=== PATIENT | male | born 1965 | race Native Hawaiian/Other Pacific Islander ===

== ENCOUNTER 2017-02-13 14:53 | Inpatient (IN) | payer BC, OTHER ==
[~2017-02-13] VITALS: Ht 154.9 cm; Wt 109.3 kg
[~2017-02-13 14:53] MED LIST: AMLO2.5T PO; BUPROPN HCL300 MG PO; DIAZEPAM10 MG PO; GABA300C2 PO; TIZA4TAB5 PO; UNITH DIRECT88 MCG PO; VITAMIN D50000 UNT PO
[2017-02-13 15:09] VITALS: BP 169/87; TEMP 99.1
[2017-02-13 16:05] LABS: PLATELET COUNT 133 K/uL (142-355)
[2017-02-13 16:09] VITALS: BP 155/72
[2017-02-13 16:09] LABS: POTASSIUM 3.8 mmol/L (3.6-5.2); SODIUM 136 mmol/L (136-145)
[2017-02-13 17:00] VITALS: BP 162/82
[2017-02-13 18:00] VITALS: BP 160/80
[2017-02-13 18:34] VITALS: BP 174/82; TEMP 99; Ht 154.9 cm; Wt 109.3 kg
[2017-02-13] MEDS ORDERED: OLANZAPINE5 M1 PO (18:45)
[2017-02-13] MEDS ORDERED: LIPITOR10 MG PO (18:46)
[2017-02-13] MEDS ORDERED: HYDR25TA60 PO (18:47)
[2017-02-13] MEDS ORDERED: PROTONIX20 MG PO (18:48)
--- NOTE | 2017-02-13 18:48 | NUR ---
182 REC'D PT VIA STRECTHER FROM ER. AT . PT HAS O2 INTACT AT 3L/NC. RESP NOTIFIED TO GIVE BREATHING TX 1829 RESP AT GIVING BREATHING TX
--- NOTE | 2017-02-13 19:40 | NUR ---
ASSESSMENT COMPLETED AT THIS TIME. PATIENT NOTED WITH GREEN DRAINAGE WHEN APPLYING PRESSURE TO THE LEFT INNER CORNER OF THE EYE STATES THIS HAS OCCURED BEFORE. 2ND IV STARTED IV ATTEMPT X1 20G TO THE RIGHT HAND.
[2017-02-13 19:51] VITALS: BP 174/91; TEMP 99.4
[2017-02-14] VITALS (18 sets, daily range): BP systolic 103–178; BP diastolic 70–95; TEMP 98.4–98.6
--- NOTE | 2017-02-14 07:30 | NUR ---
RECEIVED PT FROM ROOM [address] MCPHERSON'S ORDER. PLACED PT ON ICU MONITORS. SR NOTED. V/S STABLE. O2 @ 3L/NC. ORIENTED PT AND TO ICU SURROUNDINGS.
--- NOTE | 2017-02-14 08:52 | NUR ---
RT HERE. PT PLACED ON BIPAP. SETTINGS 01/05, 40%.
[2017-02-14 09:06] LABS: PLATELET COUNT 123 K/uL (142-355)
[2017-02-14 09:15] LABS: POTASSIUM 3.3 mmol/L (3.6-5.2); SODIUM 138 mmol/L (136-145)
--- NOTE | 2017-02-14 09:28 | NUR ---
PT RESTING QUIETLY WITH EYES CLOSED. V/S STABLE. WILL CONTINUE TO MONITOR.
--- NOTE | 2017-02-14 12:15 | NUR ---
PT AWAKE AND TAKEN OFF BIPAP AND PLACED ON O2 @ 3L/NC. SAT PT UP FOR LUNCH. WILL CONTINUE TO MONITOR.
--- NOTE | 2017-02-14 12:22 | NUR ---
0800 DR MCPHERSON HERE AT THIS TIME. MEW ORDERS GIVEN TO OBTAIN VS STAT PER . 98.9 100 21 179/86 94% WITH O2 INTACT. VS REPORTED TO DR MCPHERSON. 0810 NEW ORDERES REC'D TO TRANSFER PT TO ICU. AT BS AND AWARE OF TRANSFER. EXPLAINED TO PT. BOTH VERBALZIED UNDERSTANDING. PT TRANSFERRED TO ICU BED 1 VIA WC PER. REPORT GIVEN TO ESTELLE IN ICU.
--- NOTE | 2017-02-14 13:07 | NUR ---
PT UP AT BEDSIDE USING URINAL. PT COUGHING, LOOSE RATTLING COUGH. SPUTUM COLLECTED THICK WHITE IN COLOR.
--- NOTE | 2017-02-14 13:15 | NUR ---
RT HERE FOR ABG.
--- NOTE | 2017-02-14 13:31 | NUR ---
PT PLACED BACK ON BIPAP PER DR. MCPHERSON'S ORDER.
--- NOTE | 2017-02-14 14:40 | NUR ---
PT RESTING QUIETLY WITH EYES CLOSED. VS STABLE. WILL CONTINUE TO MONITOR.
--- NOTE | 2017-02-14 15:06 | NUR ---
PT TOOK BIPAP OFF WANTED A BREAK FROM IT. PLACED ON O2 AT 3LNC.
--- NOTE | 2017-02-14 15:08 | NUR ---
PT TOOK BIPAP OFF. PLACED O2 @ 3L/NC. WILL REAPPLY BIPAP AFTER BREAK.
--- NOTE | 2017-02-14 15:14 | NUR ---
ELEVATED T WAVES NOTED ON THE MONITOR. RT AT BEDSIDE FOR EKG. PT DENIES ANY CP. DR. MCPHERSON AWARE.
--- NOTE | 2017-02-14 15:47 | NUR ---
PT'S CALLED FOR AN UPDATE ON PT.
--- NOTE | 2017-02-14 16:40 | NUR ---
PLACED PT BACK ON BIPAP.
--- NOTE | 2017-02-14 16:43 | NUR ---
PT PLACED BACK ON BIPAP AT HIS REQUEST, TOLERATEATING WELL.
--- NOTE | 2017-02-14 18:26 | NUR ---
PT RESTING QUIETLY WITH EYES CLOSED.
--- NOTE | 2017-02-14 19:24 | NUR ---
Received pt resting in bed quietly at this time. No distress noted. VSS per monitor. Pt alert and oriented. BIPAP in place at this time. NS infusing at 125cc/hr via 20g to RH. 18g to RAC SL. No s/s of infiltration at this time. EW noted throughout lung sharpe. Pt gets SOB with excertion. Assessment completed. Denies pain at this time. SR noted on monitor. Resp even and non labored. HOB elevated. Bed in lowest position. Call light within reach. Will continue to monitor.
--- NOTE | 2017-02-14 20:02 | NUR ---
Pt at bedside with food for pt. Pt tolerating it well at this time. Will continue to monitor.
--- NOTE | 2017-02-14 20:33 | NUR ---
Pt placed back on BIPAP at this time.
--- NOTE | 2017-02-14 21:51 | NUR ---
Pt resting in bed with eyes closed. No distress noted at this time. Will continue to monitor.
--- NOTE | 2017-02-14 23:25 | NUR ---
Pt wanted break from BIPAP. Placed on NC 3L/min. O2 sat of 95% at this time. Will continue to monitor.
--- NOTE | 2017-02-14 23:39 | NUR ---
Placed pt back on BIPAP at this time. Requested some ativan for anxiety. Medication given. Will continue to monitor.
[2017-02-15] VITALS (24 sets, daily range): BP systolic 115–175; BP diastolic 72–107; TEMP 97.9–98.3
--- NOTE | 2017-02-15 01:38 | NUR ---
Placed on 3L NC at this time.
--- NOTE | 2017-02-15 02:30 | NUR ---
Place BIPAP back on pt at this time.
--- NOTE | 2017-02-15 04:04 | NUR ---
No distress noted at this time. BIPAP in place. VSS per monitor. 100% O2 sat. Will continue to monitor.
--- NOTE | 2017-02-15 05:35 | NUR ---
Amy labs drawn at this time.
[2017-02-15 05:53] LABS: POTASSIUM 4.3 mmol/L (3.6-5.2); SODIUM 143 mmol/L (136-145)
[2017-02-15 06:24] LABS: PLATELET COUNT 140 K/uL (142-355)
--- NOTE | 2017-02-15 07:00 | NUR ---
PT AWAKE SITTING ON SIDE OF BED. BIPAP TAKEN OFF AND O2 @ 3L/NC APPLIED.
--- NOTE | 2017-02-15 07:16 | NUR ---
AM ASSESSMENT DONE.
--- NOTE | 2017-02-15 08:34 | NUR ---
PT ATE ALL OF BREAKFAST. PT'S FACE REDDISH PURPLISH, O2 SAT 98%, HR 110'S, RR 22. PT PLACED BACK ON BIPAP. WILL CONTINUE TO MONITOR.
--- NOTE | 2017-02-15 08:42 | NUR ---
IV TO R AC D/C'D WITH TIP INTACT PRESSURE DRESSING APPLIED PER PT'S REQUEST.
--- NOTE | 2017-02-15 09:14 | NUR ---
PT RESTING WITH EYES CLOSED ON BIPAP. PT IS HAVING SHORT PERIODS OF APNEA. WILL CONTINUE TO MONITOR.
--- NOTE | 2017-02-15 09:41 | NUR ---
SERGEY MORALES RN IN TO SEE PT.
--- NOTE | 2017-02-15 11:32 | NUR ---
PT TAKEN OFF BIPAP AND PLACED ON O2 @ 3L/NC. AT BEDSIDE.
--- NOTE | 2017-02-15 11:36 | NUR ---
PT HAS SOME MILD CONFUSION.
--- NOTE | 2017-02-15 12:56 | NUR ---
FSBS 331. AM'S BS 344. PT IS ON SOLUMEDROL. DR. MCPHERSON NOTIFIED.
--- NOTE | 2017-02-15 13:03 | NUR ---
RECEIVED ORDER FROM DR. MCPHERSON FOR SSC. PLACED PT BACK ON BIPAP. AT BEDSIDE.
--- NOTE | 2017-02-15 13:32 | NUR ---
PT OFF OF BIPAP AND ON O2 @ 3L/NC. PT FIDGETING AND CAN'T BE STILL.
--- NOTE | 2017-02-15 13:45 | NUR ---
DR. MCPHERSON HERE TO SEE PT.
--- NOTE | 2017-02-15 13:59 | NUR ---
PT PLACED BACK ON BIPAP. WILL CONTINUE TO MONITOR.
--- NOTE | 2017-02-15 14:31 | NUR ---
PT PLACED ON BIPAP BY NURSE AT 1359.
--- NOTE | 2017-02-15 14:50 | NUR ---
PT RESTING QUIETLY WITH EYES CLOSED.
--- NOTE | 2017-02-15 16:00 | NUR ---
PT TAKEN OFF BIPAP AND PLACED O2 @ 3L/NC.
--- NOTE | 2017-02-15 16:47 | NUR ---
PT BRUSHED HIS TEETH. GAVE PT A BATH AND CHANGED BED LINENS. PT ARBEN WELL.
--- NOTE | 2017-02-15 18:01 | NUR ---
PT WATCHING TV. NAD NOTED AT THIS TIME.
--- NOTE | 2017-02-15 18:21 | NUR ---
PLACED PT ON BIPAP.
--- NOTE | 2017-02-15 18:35 | NUR ---
pt off bipap. on o2 @ 3l/nc.
--- NOTE | 2017-02-15 18:50 | NUR ---
PT TAKEN OFF BIPAP AT 1630 BY NURSE.
--- NOTE | 2017-02-15 19:12 | NUR ---
Pt resting in bed with family at bedside. No distress noted at this time. Assessment completed. Pt alert and oriented. VSS per monitor. Pt on 3L NC at this time. Resp even and non labored. HOB elevated. NS infusing at 125ml/hr to RH. No s/s of infiltration noted. Bed in lowest position. Call light within reach. Will continue to monitor.
--- NOTE | 2017-02-15 20:37 | NUR ---
Pt placed on BIPAP and resting in bed
--- NOTE | 2017-02-15 22:06 | NUR ---
No distress noted at this time. Pt resting in bed with eyes closed. VSS per monitor. Will continue to monitor.
[2017-02-16] VITALS (24 sets, daily range): BP systolic 90–163; BP diastolic 60–97; TEMP 97.7–98.7
--- NOTE | 2017-02-16 01:39 | NUR ---
0100 PT ASKED TO TAKE OFF BIPAP AND IS ON O2 AT 3L/NC. PT TOLERATING WELL AND MAINTAINING O2 SAT OF 95 TO 97%.
--- NOTE | 2017-02-16 01:40 | NUR ---
AT 01:00 PT REQUESTED TO BE REMOVED FROM BIPAP THERAPY AND BE PLACED ON N/C @ 3 LPM. SPO2 96%. NURSE AWARE OF CHANGE.
--- NOTE | 2017-02-16 02:05 | NUR ---
PT REQUESTED SOMETHING TO HELP HIME SLEEP AND ATIVAN GIVEN. PT REQUESTED TO BE PLACED BACK ON BI-PAP AND EDSON PLACED HIM ON BI-PAP.
--- NOTE | 2017-02-16 02:18 | NUR ---
PT REQUESTED TO COME OFF BI-PAP AND GO BACK ON O2 AT 3L/NC.
--- NOTE | 2017-02-16 02:19 | NUR ---
PT REMOVED BIPAP AND NOW USING NASAL O2 AT 3 LPM. NURSE JAXON STEWART AWARE.
[2017-02-16 06:04] LABS: SODIUM 142 mmol/L (136-145)
[2017-02-16 06:11] LABS: PLATELET COUNT 168 K/uL (142-355)
--- NOTE | 2017-02-16 07:00 | NUR ---
REPORT FROM PM STAFF. PT RESTING IN [place] WATCHING TV ON BIPAP 15/7.30% O2. NO C/O PAIN.
--- NOTE | 2017-02-16 08:30 | NUR ---
PT OFF BIPAP & OM 3L/NC. PT UP TO BSC. MED GREENISH LOOSE BM.ASSISTED WITH PERICARE. PT UNSTEADY WHEN GETTING OOB. HX OF FOOT DROP. WALKER AT BS FOR USE.
--- NOTE | 2017-02-16 09:21 | NUR ---
PT PLACED BACK ON BIPAP 15/7 & 30% O2,RR RATE 20,O2 SAT 92%.
--- NOTE | 2017-02-16 10:15 | NUR ---
DR MITCHELL IN TO SEE PT. PT'S AT BS. DR MITCHELL CKED PT 7 DISCUSSED CARE WITH PT'S .
--- NOTE | 2017-02-16 12:10 | NUR ---
PT ASSISTED UP IN BED,CHANGED TO NC 3L. PT SITTING UP EATING LUNCH.
--- NOTE | 2017-02-16 13:15 | NUR ---
DISCUSSED PT'S WHEEZING, IV FLUIDS NS AT 125 ML/HR & PT'S ACCUMILATED I'S & O'S WITH SERGEY MORALES RN/ABRAHAM/DR MITCHELL. NEW ORDERS.
--- NOTE | 2017-02-16 15:45 | NUR ---
PT RESTING WITH EYES CLOSED.
--- NOTE | 2017-02-16 16:09 | NUR ---
AT BS,PT UP TO STAND AT BS,VOIDED 400ML,CL YELLOW URINE IN URINAL. INCREASED SOB WITH EFFORT,AUDIBLE WHEEZE WITH EXERTION, COUGHING AT INTERVALS. PT CONTINUES TO USE SMOKELESS TOBACCO & SPIT IN A CUP A BS. DR NESS.
--- NOTE | 2017-02-16 16:22 | NUR ---
PT PLACED BACK ON BIPAP SAME SETTING'S PER PT REQUEST.
--- NOTE | 2017-02-16 20:57 | NUR ---
PATIENT PLACE ON BI PAP.
--- NOTE | 2017-02-16 21:17 | NUR ---
PT ASKED FOR BIPAP TO BE TAKEN OFF.
[2017-02-17] VITALS (19 sets, daily range): BP systolic 114–157; BP diastolic 63–99; TEMP 97.5–98.2
--- NOTE | 2017-02-17 01:22 | NUR ---
STOOL WAS COLLECTED AND SENT TO LAB EARLIER THIS SHIFT. NO ABNORMALS ON STOOL PER LAB.
--- NOTE | 2017-02-17 01:55 | NUR ---
PT REQUESTED SOMETHING FOR REST. PT WAS GIVEN VALIUM 10 MG PO FOR RESTLESSNESS AND WAS REPOSITIONED IN BED.
--- NOTE | 2017-02-17 03:24 | NUR ---
MEDICATION EFFECTIVE. PT RESTING QUIETLY. HR 46. SINUS SOPHIA. O2 SAT IS 99 PERCENT.
[2017-02-17 05:20] LABS: POTASSIUM 4.3 mmol/L (3.6-5.2); SODIUM 135 mmol/L (136-145)
[2017-02-17 05:28] LABS: PLATELET COUNT 164 K/uL (142-355)
--- NOTE | 2017-02-17 05:30 | NUR ---
BLOOD DRAWN FOR AM LABS. LAB RESULTS BACK.
--- NOTE | 2017-02-17 07:00 | NUR ---
REPORT FROM PM STAFF. PT RESTING IN LOW FOWLERS WITH EYES CLOSED. NO C/O.
--- NOTE | 2017-02-17 09:30 | NUR ---
DR MITCHELL IN TO SEE PT.NEW ORDERS.
--- NOTE | 2017-02-17 10:15 | NUR ---
PT WITH O2 SAT 96%,PT PLACED BACK ON BIPAP PT'S REQUEST.
--- NOTE | 2017-02-17 11:00 | NUR ---
PT TOOK SELF OFF BIPAP & PUT ON O2 AT 3L/NC.O2 SATS 97%. RR RATE 20.
--- NOTE | 2017-02-17 11:50 | NUR ---
PT SITTING UP ON SIDE OF THE BED,USED URINAL 550 ML CL YELLOW URINE.
--- NOTE | 2017-02-17 12:45 | NUR ---
PT SITTING UP IN BED FEEDING SELF LUNCH. NO C/O PAIN.
--- NOTE | 2017-02-17 14:20 | NUR ---
PT TO SHOWER /WC PER HAROLDO'Jorje,RACHEL NOEL & HANNAH SHARMA. PT STABLE ON O2 AT 3L/NC.
--- NOTE | 2017-02-17 14:42 | NUR ---
PT BACK TO BED.STABLE ON O2 AT 3L/NC.
--- NOTE | 2017-02-17 16:30 | NUR ---
PT WATCHING TV,O2 SAT96%.
--- NOTE | 2017-02-17 17:43 | NUR ---
PT SLEEPING. O2 SAT 93&.
--- NOTE | 2017-02-17 18:33 | NUR ---
PT FED SELF DINNER,DENIES ACUTE PAIN. INCREASED SOB WITH EXERTION. WHEN UP TO BSC, FACE BECOMES FLUSED & PT WHEEZES. O2 SATS 97%.
[2017-02-18] VITALS (10 sets, daily range): BP systolic 88–189; BP diastolic 49–91; TEMP 97.9–98.6
--- NOTE | 2017-02-18 00:56 | NUR ---
PT USING BIPAP. PT WITHOUT COMPLAINTS. CM WITH SINUS RHYTHM. BSC IN EACH REACH. PT USES WALKER FOR ASSISTANCE WITH TRANSFER.
[2017-02-18 06:11] LABS: PLATELET COUNT 143 K/uL (142-355)
[2017-02-18 06:29] LABS: POTASSIUM 3.6 mmol/L (3.6-5.2); SODIUM 137 mmol/L (136-145)
--- NOTE | 2017-02-18 07:30 | NUR ---
AM ASSESSMNT DONE. NAD NOTED AT THIS TIME.
--- NOTE | 2017-02-18 09:44 | NUR ---
PT RESTING QUIETLY WITH EYES CLOSED. WILL CONTINUE TO MONITOR.
--- NOTE | 2017-02-18 10:50 | NUR ---
DR. MITCHELL HERE TO SEE PT.
--- NOTE | 2017-02-18 12:52 | NUR ---
RECEIVED ORDER TO TRANSFER PT TO MED SURG. PT WILL BE MOVED TO ROOM 1109.
--- NOTE | 2017-02-18 15:29 | NUR ---
PT UP TO BSC. PT HAD BM. COLLECTED AND SENT TO THE LAB.
--- NOTE | 2017-02-18 15:51 | NUR ---
TRANSFERRED PT TO ROOM 1109 VIA IN STABLE COND. ORIENTED PT TO HIS SURROUNDINGS. REPORT GIVEN TO ANGELO PIZARRO RN.
--- NOTE | 2017-02-18 16:24 | NUR ---
1600 REC'D PT FROM ICU VIA WC PER ESTELLE FROM ICU. PT AWAKE AND ALERT. PT ASSISTED BACK TO BED AND O2 PER NC PLACED ON PT AT 3 L/NC
[2017-02-19 00:28] VITALS: BP 136/74; TEMP 98.7
[2017-02-19 04:00] VITALS: BP 157/88; TEMP 98.5
[2017-02-19 05:24] LABS: PLATELET COUNT 142 K/uL (142-355)
[2017-02-19 06:03] LABS: POTASSIUM 3.1 mmol/L (3.6-5.2); SODIUM 139 mmol/L (136-145)
[2017-02-19 07:50] VITALS: BP 184/93; TEMP 98.8
[2017-02-19 12:00] VITALS: BP 128/72; TEMP 98.8
[2017-02-19 16:00] VITALS: BP 156/98; TEMP 98.9
--- NOTE | 2017-02-19 16:10 | NUR ---
02 90% ON ROOM AIR WALKING PT O2 DROPPED TO 76%. PT BACK TO ROOM AND 02 REAPPLIED AT 3L AND 02 SAT UP TO 92% DR MITCHELL NOTIFIED.
--- NOTE | 2017-02-19 16:45 | NUR ---
DC INSTRUCTIONS GIVEN TO PT AND . PT INSTRUCTED ON RX CALLED [facility] BY KENRICK AVILES. IV DC'D WITH CANNULA INTACT AND SITE CARE PROVIDED. AWAITING ANA MARIA FROM [facility]. RESP. TO SET UP HOME .
--- NOTE | 2017-02-19 17:15 | NUR ---
PT LEFT VIA WC WITH HOME O2 AT THIS TIME.
== END 2017-02-19 17:15 | disposition home or self-care (01) | DRG 177 ==
LOC: ED 14:53 → ICU 17:50 → MED/SURG 17:50 → ICU 02-14 07:20 → MED/SURG 02-18 15:55
PROVIDERS: Internal Medicine
DX: J15.5 Pneumonia due to Escherichia coli (principal); J96.02 Acute respiratory failure with hypercapnia; E87.2 Acidosis; J10.08 Influenza due to other identified influenza virus with other specified pneumonia; J02.0 Streptococcal pharyngitis; G62.89 Other specified polyneuropathies; A08.8 Other specified intestinal infections; M48.00 Spinal stenosis, site unspecified
CPT/HCPCS: 36415; 36600; 80048; 80053; 80202; 81000; 82272; 82805; 82948; 82962; 83735; 85027; 87040; 87045; 87070; 87077; 87186; 87205; 87328; 87329; 87493; 87798; 87804; 87880; 87899; 93005; 94640; 94664; 94760; 96361; 96365; 96368; 96372; 99285; J0456; J0696; J0744; J1644; J1956; J2060; J2543; J2930; J3370; J3490

== ENCOUNTER 2017-03-10 12:55 | Outpatient (CLI) | payer BC, OTHER ==
[~2017-03-10 12:55] MED LIST changes: +HYDR25TA60 PO; +LIPITOR10 MG PO; +OLANZAPINE5 M1 PO; +PROTONIX20 MG PO
== END 2017-03-10 14:00 | disposition home or self-care (01) ==
LOC: RESP 12:55
DX: R06.02 Shortness of breath (principal)
CPT/HCPCS: 94664

== ENCOUNTER 2017-04-09 15:25 | Observation (INO) | payer BC, OTHER ==
[~2017-04-09] VITALS: Ht 175.3 cm; Wt 108.9 kg
--- NOTE | 2017-04-09 15:40 | NUR ---
PT ADMITTED TO ROOM [address] MCPH[address]. PT C/O OF SOB THAT STARTED X 2 DAYS. PT STATES HE HAS A PREVIOUS DIAGNOSIS OF RESPIRATORY FAILURE AND A GROWTH IN ONE OF HIS LUNGS THAT WAS DISCOVERED IN FEBRUARY OF 2017.
[2017-04-09 17:22] LABS: PLATELET COUNT 148 K/uL (142-355)
[2017-04-09 19:05] VITALS: BP 161/98; TEMP 98.5; Ht 175.3 cm; Wt 108.9 kg
[2017-04-09 20:00] VITALS: BP 163/94; TEMP 99
[2017-04-10 00:20] VITALS: BP 107/66; TEMP 98.1
--- NOTE | 2017-04-10 01:00 | NUR ---
04/10/17 0100 RESPIRATORY PRESENT TO GIVE BREATHING TREATMENT,INCENTIVE SPIIROMETER USED WAS ABLE 1500.CC
[2017-04-10 04:00] VITALS: BP 122/77; TEMP 98.6
[2017-04-10 05:44] LABS: PLATELET COUNT 151 K/uL (142-355)
[2017-04-10 06:01] LABS: SODIUM 134 mmol/L (136-145)
[2017-04-10 08:00] VITALS: BP 139/76; TEMP 97.7
[2017-04-10 12:00] VITALS: BP 151/70; TEMP 98.4
[2017-04-10 16:00] VITALS: BP 128/78; TEMP 98.4
[2017-04-10 20:00] VITALS: BP 142/62; TEMP 98.3
[2017-04-11] VITALS: BP 118/64; TEMP 97.8
[2017-04-11 04:00] VITALS: BP 109/63; TEMP 97.6
[2017-04-11 05:08] LABS: PLATELET COUNT 144 K/uL (142-355)
[2017-04-11 05:11] LABS: POTASSIUM 3.8 mmol/L (3.6-5.2); SODIUM 134 mmol/L (136-145)
[2017-04-11 08:00] VITALS: BP 141/82; TEMP 97.7
[2017-04-11 12:00] VITALS: BP 148/76; TEMP 98.6
--- NOTE | 2017-04-11 12:50 | NUR ---
IV D/C'd.DISCHARGE INSTRUCTIONS SIGNED AND GIVEN. Pt. EXIT OUT OF FRONT ENTRANCE VIA W/C.
== END 2017-04-11 12:50 | disposition home or self-care (01) ==
LOC: MED/SURG 15:25
PROVIDERS: Internal Medicine; ADMIT Nurse Practitioner Family
DX: J44.1 Chronic obstructive pulmonary disease with (acute) exacerbation (principal); J20.9 Acute bronchitis, unspecified; J44.0 Chronic obstructive pulmonary disease with (acute) lower respiratory infection; R06.09 Other forms of dyspnea; R00.0 Tachycardia, unspecified; R05 Cough; E03.8 Other specified hypothyroidism; I10 Essential (primary) hypertension; J84.10 Pulmonary fibrosis, unspecified; D86.0 Sarcoidosis of lung
CPT/HCPCS: 36415; 36600; 80048; 80053; 82805; 83735; 85027; 86703; 86803; 87340; 94640; 94664; 94668; 94760; 96367; 96372; 96374; 96375; 99220; G0378; G0379; G0432; J1644; J1956; J2930; J3490

== ENCOUNTER 2017-05-06 08:21 | Inpatient (IN) | payer BC, OTHER ==
[~2017-05-06] VITALS: Ht 175.3 cm; Wt 114.8 kg
[2017-05-06 08:30] VITALS: BP 180/104; TEMP 98.6
[2017-05-06 09:29] LABS: POTASSIUM 3.9 mmol/L (3.6-5.2)
[2017-05-06 11:38] LABS: PLATELET COUNT 212 K/uL (142-355)
--- NOTE | 2017-05-06 16:20 | NUR ---
Pt. ADMITTED TO ROOM [address] MCPHERSON. C/O PAIN AND REDNESS DANYELLE LE'S WITH TENDERNESS. RED AREA RLL 2.5X 13/4 CM. LL LEG OUTER REGION 4CMX 5.5 CM, R LEG ABOVE KNEE 5CMX3.5CM, REDDNESS AREA C/O BURING &TENDERNESS TO TOUCH L HEEL 5.5X8CM.
--- NOTE | 2017-05-06 16:50 | NUR ---
BLOOD PRESSURE 210/130 ON ARRIVAL TO ROOM. NOTIFIED DR. MARISCAL OF BLOOD. B/P WAS ELEVATED IN ER. NEW ORDERS GIVEN.
[2017-05-06 17:06] VITALS: BP 210/130; TEMP 98.6; Ht 175.3 cm; Wt 114.8 kg
[2017-05-06 20:00] VITALS: BP 187/104; TEMP 99.4
[2017-05-07] VITALS (21 sets, daily range): BP systolic 107–187; BP diastolic 61–101; TEMP 98–98.9
--- NOTE | 2017-05-07 04:17 | NUR ---
05/07/17 AT 0112PT'S B/P RECHECKED DUE TO PT GOT CATAPRES 0.2MG PO 1 HOUR AGO. B/P IS NOW 116/77. WILL CONTINUE TO MONITOR CLOSELY.
--- NOTE | 2017-05-07 04:19 | NUR ---
05/07/2017 AT 0035PT'S B/P HIGH BUT PT JUST GOT SCHEDULED PO MEDICATION FOR B/P. WILL RECHECK IN 1 HOUR.
[2017-05-07 05:22] LABS: PLATELET COUNT 166 K/uL (142-355)
[2017-05-07] MEDS ORDERED: GABA400C2 PO (05:33)
[2017-05-07] MEDS ORDERED: PERCOCET1 TA3 PO (05:40)
[2017-05-07 05:54] LABS: POTASSIUM 3.9 mmol/L (3.6-5.2); SODIUM 137 mmol/L (136-145)
--- NOTE | 2017-05-07 10:00 | NUR ---
PT TO ICU AT THIS TIME VIA WC. ORIENTED TO ICU BED AND CONTROLS. ASSESSMENT COMPLETE. IV INTACT AND PATENT AT THIS TIME. NS INFUSING AT 150 ML/HR. O2 ON AT 2L PER NC. DENIES COMPLAINTS AT THIS TIME. BANDAGE CLEAN DRY AND INTACT TO LLQ ABDOMEN. PT STATES HE HAD HIS PAIN PUMP REPLACED LAST . PT HAS FOLLOW UP APPT WITH PAIN DOCTOR NEXT WEEK. SMALL RED SPOT NOTED TO R LOWER EXTREMETIY. OUTLINED REDNESS TO MONITOR. HEEL NOTED TO HAVE BLISTERLIE APPEARANCE WITH REDNESS NOTED. ELEVATED ON PILLOW.
--- NOTE | 2017-05-07 11:43 | NUR ---
DR MCPHERSON AT BS TALKING WITH PT
--- NOTE | 2017-05-07 13:00 | NUR ---
PT HIGH FOWLERS EATING LUNCH AT THIS TIME. NAD NOTED. O2 SAT 93-95%
--- NOTE | 2017-05-07 14:15 | NUR ---
PT RESTING WITH EYES CLOSED. AROUSES EASILY. NAD NOTED
--- NOTE | 2017-05-07 15:00 | NUR ---
VISITOR AT BS. PT SITTING UP TALKING WITH VISITOR. NAD NOTED.
--- NOTE | 2017-05-07 16:00 | NUR ---
PT STANDING AT BS USING URINAL. STEADY AT THIS TIME. 500CC CLEAR YELLOW URINE NOTED.
--- NOTE | 2017-05-07 17:00 | NUR ---
DR MCPHERSON NOTIFIED OF CRITICAL LABS. INSTRUCTED TO CALL HIM WITH NEXT LEVEL. WILL INFORM PARK MAINTAINER. NO NEW ORDERS AT THIS TIME
--- NOTE | 2017-05-07 20:15 | NUR ---
CPK DRAWN. TO LAB. [place] 329.
--- NOTE | 2017-05-07 21:11 | NUR ---
PT C/O BACK PAIN. MEDICATED WITH OXYCODONE 2 TABS PO FOR PAIN SCALE OF 8
--- NOTE | 2017-05-07 22:04 | NUR ---
NORMAL SALINE INCREASED TO 500CC/HR PAST REPORTING CRITICAL LABS TO DR. MCPHERSON. PLAN OF CARE EXPLAINED TO PT. PT IN AGREEMENT.
--- NOTE | 2017-05-07 22:09 | NUR ---
ORDERS RECEIVED TO OBTAIN CHEST X-RAY AT ANY TIME PT EXHIBITS ANY SIGNS OF FLUID OVERLOAD AND NOTIFY ER DOCTOR FOR LASIX ORDER.
[2017-05-08] VITALS (17 sets, daily range): BP systolic 111–190; BP diastolic 64–104; TEMP 97.7–98.7
--- NOTE | 2017-05-08 00:15 | NUR ---
NEW IV SITE TO LEFT INNER WRIST WITH 20 GAUGE CATHETER PER PAULA LANTIGUA RN. IV FLUIDS OF NS 1000CC'S AT 500CC/HR TO THIS SITE.
--- NOTE | 2017-05-08 00:33 | NUR ---
VOIDED 600CC'S IN URINAL. PT DENIES TIGHTNESS IN CHEST, SOB. 02 PER NASAL CANNULA SATURATION 93%.
--- NOTE | 2017-05-08 02:10 | NUR ---
PT VERY UNSTEADY WHEN STANDS TO USE URINAL. SUMMERS CATHETER INSERTED FOR FALL PREVENTION PER PT REQUEST.
--- NOTE | 2017-05-08 04:14 | NUR ---
PT AWAKENED FOR LAB DRAW. PT C/O LEG AND BACK PAIN. MEDICATED WITH OXYCODONE 2 TABS PO FOR PAIN SCALE OF 7.
[2017-05-08 05:05] LABS: PLATELET COUNT 119 K/uL (142-355)
[2017-05-08 05:31] LABS: POTASSIUM 5.1 mmol/L (3.6-5.2); SODIUM 136 mmol/L (136-145)
--- NOTE | 2017-05-08 08:15 | NUR ---
AM ASSESSMENT COMPLETE.
--- NOTE | 2017-05-08 10:11 | NUR ---
FAMILY AT BS
--- NOTE | 2017-05-08 12:20 | NUR ---
DR MCPHERSON AT BS
--- NOTE | 2017-05-08 20:00 | NUR ---
AND CHILDREN AT BEDSIDE. PT STATES HE FEELS BETTER TODAY. 02 REMAINS AT 3 LITER PER NC. SUMMERS DRAINING CLEAR URINE AT BEDSIDE. IV SITE WITHOUT TO LEFT WRIST WITHOUT REDNESS OR SWELLING. INFUSING AT 250CC/HR. ABOMINAL DRESSING TO LEFT ABDOMEN INTACT.
--- NOTE | 2017-05-08 20:51 | NUR ---
PT C/O PAIN IN BACK AND LEGS. PAIN SCALE 7. MEDICATED WITH PERCOCET 2 TABS PO ORDERED.
--- NOTE | 2017-05-08 21:30 | NUR ---
PT WATCHING T.V. AT PRESENT.
[2017-05-09] VITALS (8 sets, daily range): BP systolic 123–190; BP diastolic 71–90; TEMP 97.4–99.1
--- NOTE | 2017-05-09 02:06 | NUR ---
PT RESTING QUIETLY WITH EYES CLOSED. RESP EVEN AND UNLABORED. 02 SATURATION 94%.
--- NOTE | 2017-05-09 04:12 | NUR ---
PT AWAKE. PT C/O BACK, LEGS, ABDOMINAL PAIN. PAIN SCALE 8. MEDICATED WITH OXYCODONE 2 TABS PO
--- NOTE | 2017-05-09 05:15 | NUR ---
PT ASSISTED TO BEDSIDE COMMODE. PT UNABLE TO HAVE BOWEL MOVEMENT AT THIS TIME. PT PASSING GAS.
--- NOTE | 2017-05-09 05:34 | NUR ---
PT RETURNED TO BED WITH ASSISTANCE. WATCHING T.V. AT THIS TIME.
--- NOTE | 2017-05-09 06:15 | NUR ---
RADIOLOGY AT BEDSIDE FOR CHEST X-RAY. PT HAS NONPRODUCTIVE COUGH AT TIMES.
--- NOTE | 2017-05-09 07:30 | NUR ---
PT UP TO BSC.. LARGE BM NOTED
--- NOTE | 2017-05-09 09:20 | NUR ---
BLOOD DRAW, PT TOLERATED WELL
--- NOTE | 2017-05-09 09:31 | NUR ---
AM ASSESSMENT COMPLETE
[2017-05-09 10:10] LABS: PLATELET COUNT 132 K/uL (142-355)
[2017-05-09 10:23] LABS: POTASSIUM 3.9 mmol/L (3.6-5.2); SODIUM 135 mmol/L (136-145)
--- NOTE | 2017-05-09 14:10 | NUR ---
DR MCPHERSON HERE TO ASSESS PT., NEW ORDERS GIVEN, PT DROWSY, BUT SPEAKING TO DR MCPHERSON, ANSWERING QUESTIONS APPROIATELY. SKIN WARM AND DRY, RESP REG AND UNLABORED AT THIS TIME. PT CONTINUES TO HAVE REDDNESS TO THE FACE AND SHOULDERS. PT CHEW TOBACCO WHILE LYING IN BED. IVF INFUSION AT 125ML/HR ORDERED PER MD., SITE WAS CHANGED TO PRE EXSISTING SITE AT THE LEFT AC, IVSL WAS LEFT INTACT, FLUSHED WITH 10ML NS., NO PROBLEMS NOTED AT THIS TIME.
--- NOTE | 2017-05-09 19:07 | NUR ---
PT ALERT HAS EATEN SUPPER, NO COMPLAINTS NOTED AT THIS TIME, PT TO BE TRANSPORTED TO RM 1107, VITAL SIGNS STABLE, AND RECORDED. NO PROBLEMS NOTED AT THIS TIME.
[2017-05-10] VITALS: BP 129/73; TEMP 97.9
[2017-05-10 04:00] VITALS: BP 133/92; TEMP 97.5
[2017-05-10 05:57] LABS: SODIUM 138 mmol/L (136-145)
[2017-05-10 06:09] LABS: PLATELET COUNT 103 K/uL (142-355)
[2017-05-10 08:00] VITALS: BP 164/83; TEMP 99.1
--- NOTE | 2017-05-10 08:00 | NUR ---
RESTING QUIETLY IN BED RECIEVED AM MEDS ORDERED NO COMPLAINTS. ASSIST UP IN BED FOR BREAKFAST. ARBEN WELL.
[2017-05-10 11:45] VITALS: BP 175/92; TEMP 98.5
--- NOTE | 2017-05-10 15:50 | NUR ---
SUMMERS CATHETER CLAMPED
--- NOTE | 2017-05-10 16:15 | NUR ---
PT CALLED FEELING NEED TO VOID. SUMMERS CATHETER UNCLAMPED AND DRAINED AND RECLAMPED
[2017-05-10 16:33] VITALS: BP 179/83
--- NOTE | 2017-05-10 16:55 | NUR ---
SUMMERS CATHETER UNCLAMPED 2ND TIME INFORMED PT ONCE BLADDER DRAINED SUMMERS CATHETER WILL BE D/C'D
--- NOTE | 2017-05-10 17:15 | NUR ---
D/C INSTRUCTIONS GIVEN TO PT AND . RX ATTACHED. L FA 20G D/C'D AND R AC 18G CATH TIP INTACT.
== END 2017-05-10 17:40 | disposition home or self-care (01) | DRG 558 ==
LOC: ED 08:21 → ICU 13:20 → MED/SURG 13:20 → ICU 05-07 10:10 → MED/SURG 05-09 19:00
PROVIDERS: Internal Medicine; Specialist; ADMIT Family Medicine
DX: M62.82 Rhabdomyolysis (principal); E87.2 Acidosis; J84.10 Pulmonary fibrosis, unspecified; E11.9 Type 2 diabetes mellitus without complications; R06.89 Other abnormalities of breathing; D86.8 Sarcoidosis of other sites; I10 Essential (primary) hypertension; L52 Erythema nodosum; E03.8 Other specified hypothyroidism; G62.9 Polyneuropathy, unspecified
CPT/HCPCS: 36415; 36600; 80053; 81000; 82550; 82553; 82805; 82962; 83036; 83735; 83880; 84100; 84439; 84443; 84484; 85027; 85379; 93005; 96365; 96366; 96372; 99284; J1644; J2930; J3411; J3475; J3490; Q9963

== ENCOUNTER 2017-05-21 14:57 | Observation (INO) | payer BC, OTHER ==
[~2017-05-21] VITALS: Ht 175.3 cm; Wt 98.0 kg
[2017-05-21] VITALS (9 sets, daily range): BP systolic 90–131; BP diastolic 58–86; TEMP 97.8–99.4; Ht 175.3 cm; Wt 98.0 kg
[~2017-05-21 14:57] MED LIST changes: +GABA400C2 PO; +PERCOCET1 TA3 PO
[2017-05-21] MEDS ORDERED: LEVEMIR SC (15:14)
[2017-05-21] MEDS ORDERED: PRINIVIL10 MG OR (15:14)
[2017-05-21 15:30] LABS: PLATELET COUNT 266 K/uL (142-355)
[2017-05-21 15:48] LABS: POTASSIUM 4.4 mmol/L (3.6-5.2); SODIUM 128 mmol/L (136-145)
[2017-05-21 15:51] LABS: PARTIAL THROMBOPLASTIN TIME 24.5 SECONDS (24.5-33.6)
[2017-05-22] VITALS: BP 125/68; TEMP 98.5
[2017-05-22 04:00] VITALS: BP 138/73; TEMP 98.7
[2017-05-22 07:51] LABS: PLATELET COUNT 184 K/uL (142-355)
[2017-05-22 07:59] LABS: POTASSIUM 3.5 mmol/L (3.6-5.2)
[2017-05-22 08:00] VITALS: BP 130/62; TEMP 98.4
[2017-05-22 12:00] VITALS: BP 98/70; TEMP 99.5
[2017-05-22 16:00] VITALS: BP 102/67; TEMP 98
== END 2017-05-22 16:28 | disposition home or self-care (01) ==
LOC: ED 14:57 → MED/SURG 16:25
PROVIDERS: Internal Medicine; ADMIT Emergency Medicine
DX: R07.89 Other chest pain (principal); E11.9 Type 2 diabetes mellitus without complications; R06.09 Other forms of dyspnea; J84.10 Pulmonary fibrosis, unspecified
CPT/HCPCS: 36415; 36591; 80053; 82550; 82948; 83735; 83880; 84484; 85027; 85610; 85730; 93005; 94640; 94664; 94760; 96361; 96372; 96374; 96375; 99220; 99284; G0378; J1815; J2060

== ENCOUNTER 2018-03-04 10:43 | Observation (INO) | payer BC, OTHER ==
[~2018-03-04] VITALS: Ht 175.3 cm; Wt 101.2 kg
[~2018-03-04 10:43] MED LIST changes: +LEVEMIR SC; +PRINIVIL10 MG OR
[2018-03-04 12:24] LABS: PLATELET COUNT 140 K/uL (142-355)
[2018-03-04 12:52] LABS: POTASSIUM 4.5 mmol/L (3.6-5.2); SODIUM 135 mmol/L (136-145)
[2018-03-04 15:49] VITALS: BP 148/93; TEMP 98.7; Ht 175.3 cm; Wt 101.2 kg
[2018-03-04 20:00] VITALS: BP 146/94; TEMP 97.6
[2018-03-05] VITALS: BP 162/85; TEMP 97.7
[2018-03-05 04:00] VITALS: BP 163/74; TEMP 97.7
[2018-03-05 05:19] LABS: PLATELET COUNT 150 K/uL (142-355)
[2018-03-05 06:05] LABS: POTASSIUM 4.3 mmol/L (3.6-5.2)
[2018-03-05 08:00] VITALS: BP 150/74; TEMP 97.9
[2018-03-05 12:00] VITALS: BP 141/84; TEMP 98
[2018-03-05] MEDS ORDERED: MEDROL DOSEPAK4 MG PO (15:56)
[2018-03-05] MEDS ORDERED: CLARITIN10 MG PO (15:56)
--- NOTE | 2018-03-05 17:03 | NUR ---
IV TO PTS LEFT FA D/C'D. DISCHARGE INSTRUCTIONS GIVEN. MEDS SENT TO [facility]. PT IS TO FOLLOW UP WITH PCP IN 3-5 DAYS. PT LEFT VIA WC. FAMILY AT SIDE. HOME O2 INTACT. PT TOLERATING WELL. NAD NOTED.
== END 2018-03-05 17:03 | disposition home or self-care (01) ==
LOC: MED/SURG 10:43
PROVIDERS: ADMIT Family Medicine
DX: E87.2 Acidosis (principal); R06.02 Shortness of breath; E11.9 Type 2 diabetes mellitus without complications; I10 Essential (primary) hypertension; E03.8 Other specified hypothyroidism; J84.10 Pulmonary fibrosis, unspecified
CPT/HCPCS: 36600; 80053; 82550; 82553; 82805; 83615; 83735; 83880; 84484; 85027; 85379; 86738; 87040; 87899; 93005; 94640; 94664; 94760; 96374; 96375; 99220; G0378; G0379; J1815; J2930; Q9963

== ENCOUNTER 2018-05-10 11:37 | Inpatient (IN) | payer BC, OTHER ==
[~2018-05-10] VITALS: Ht 175.3 cm; Wt 99.5 kg
[~2018-05-10 11:37] MED LIST changes: +CLARITIN10 MG PO; +MEDROL DOSEPAK4 MG PO
[2018-05-10 11:40] VITALS: BP 157/104; TEMP 102
[2018-05-10 13:37] LABS: PLATELET COUNT 180 K/uL (142-355)
[2018-05-10 13:46] LABS: POTASSIUM 4.1 mmol/L (3.6-5.2)
[2018-05-10 16:59] VITALS: BP 169/51; TEMP 99.2; Ht 175.3 cm; Wt 99.5 kg
[2018-05-10 20:00] VITALS: BP 167/85; TEMP 98.8
[2018-05-11] VITALS: BP 128/72; TEMP 98.3
[2018-05-11 04:00] VITALS: BP 115/70; TEMP 97.6
[2018-05-11 05:36] LABS: PLATELET COUNT 184 K/uL (142-355)
[2018-05-11 06:00] LABS: POTASSIUM 4.2 mmol/L (3.6-5.2)
[2018-05-11 08:00] VITALS: BP 141/80; TEMP 98.2
[2018-05-11 12:00] VITALS: BP 126/84; TEMP 98.3
[2018-05-11 16:00] VITALS: BP 155/87; TEMP 98.2
[2018-05-11 20:00] VITALS: BP 110/59; TEMP 97.8
[2018-05-12] VITALS: BP 130/55; TEMP 97.8
[2018-05-12 04:00] VITALS: BP 109/56; TEMP 97.5
[2018-05-12 08:00] VITALS: BP 139/64; TEMP 98.2
[2018-05-12 08:23] LABS: PLATELET COUNT 197 K/uL (142-355)
[2018-05-12 08:51] LABS: POTASSIUM 4.9 mmol/L (3.6-5.2)
[2018-05-12] MEDS ORDERED: MEDROL4 MG PO (11:14)
[2018-05-12] MEDS ORDERED: PROAIR HFA IN (11:14)
[2018-05-12] MEDS ORDERED: LEVO250T2 PO (11:14)
[2018-05-12 12:00] VITALS: BP 135/74; TEMP 97.8
== END 2018-05-12 13:00 | disposition home or self-care (01) | DRG 195 ==
LOC: ED 11:37 → MED/SURG 15:30
PROVIDERS: ADMIT Family Medicine
DX: J18.8 Other pneumonia, unspecified organism (principal); I10 Essential (primary) hypertension; E11.42 Type 2 diabetes mellitus with diabetic polyneuropathy; E03.8 Other specified hypothyroidism; E78.4 Other hyperlipidemia; G89.29 Other chronic pain; F41.8 Other specified anxiety disorders
CPT/HCPCS: 36415; 36600; 80053; 81000; 82805; 82948; 85027; 87040; 87070; 87205; 87899; 93005; 94640; 94664; 94760; 96365; 96372; 96375; 99284; J0456; J0696; J1815; J2930; J3490

== ENCOUNTER 2018-06-08 09:53 | Emergency (ER) | payer BC, OTHER ==
[~2018-06-08] VITALS: Ht 175.3 cm; Wt 99.3 kg
[~2018-06-08 09:53] MED LIST changes: +LEVO250T2 PO; +MEDROL4 MG PO; +PROAIR HFA IN
[2018-06-08 10:00] VITALS: TEMP 98.4
[2018-06-08 10:59] LABS: PLATELET COUNT 148 K/uL (142-355)
[2018-06-08 11:15] LABS: POTASSIUM 4.3 mmol/L (3.6-5.2); SODIUM 142 mmol/L (136-145)
[2018-06-08 12:36] VITALS: BP 125/88
== END 2018-06-08 12:36 | disposition home or self-care (01) ==
LOC: ED 09:53
DX: D86.0 Sarcoidosis of lung (principal)
CPT/HCPCS: 36415; 80053; 81000; 84484; 85027; 93005; 96374; 99284; J2930

== ENCOUNTER 2021-02-28 09:09 | Emergency (ER) | payer OTHER ==
[~2021-02-28] VITALS: Ht 175.3 cm; Wt 86.6 kg
[2021-02-28 09:20] VITALS: TEMP 98.9
[2021-02-28] MEDS ORDERED: LYRICA150 MG PO (09:22)
[2021-02-28] MEDS ORDERED: TIZANIDINE HYDRO4 MG PO (09:23)
[2021-02-28] MEDS ORDERED: LIPITOR10 MG PO (09:25)
[2021-02-28] MEDS ORDERED: DILT-XR180 MG PO (09:27)
[2021-02-28] MEDS ORDERED: LEVOTHYROXIN100 MC1 IV (09:28)
[2021-02-28] MEDS ORDERED: PRED5TAB3 PO (09:28)
[2021-02-28] MEDS ORDERED: METFORMIN HCL500 MG PO (09:29)
[2021-02-28] MEDS ORDERED: LEVEMIR FL100 UNIT/M SC (09:30)
[2021-02-28] MEDS ORDERED: HUMALOG MIX SC (09:30)
[2021-02-28] MEDS ORDERED: PEPCID40 MG PO (09:31)
[2021-02-28] MEDS ORDERED: BUDE1AER5 INH (09:32)
[2021-02-28] MEDS ORDERED: IPRAAER INH (09:37)
[2021-02-28] MEDS ORDERED: OFEV150 MG PO (09:38)
[2021-02-28] MEDS ORDERED: AMIT25TA22 PO (09:39)
[2021-02-28 09:56] LABS: PLATELET COUNT 197 K/uL (142-355)
[2021-02-28 10:09] LABS: POTASSIUM 4.4 mmol/L (3.6-5.2); SODIUM 131 mmol/L (136-145)
[2021-02-28 10:18] LABS: PARTIAL THROMBOPLASTIN TIME 23.9 SECONDS (24.5-33.6)
[2021-02-28 11:20] VITALS: BP 136/88
== END 2021-02-28 11:20 | disposition home or self-care (01) ==
LOC: ED 09:09
PROVIDERS: Hospitalist
DX: E11.65 Type 2 diabetes mellitus with hyperglycemia (principal); R06.02 Shortness of breath; Z20.822 Contact with and (suspected) exposure to COVID-19; Z98.890 Other specified postprocedural states
CPT/HCPCS: 80053; 81000; 81002; 82550; 82948; 83880; 84484; 85027; 85610; 85730; 87635; 93005; 96360; 96361; 96374; 96375; 99284; J1815; U0003

== ENCOUNTER 2021-04-29 08:25 | Outpatient (CLI) | payer OTHER ==
[~2021-04-29 08:25] MED LIST changes: +AMIT25TA22 PO; +BUDE1AER5 INH; +DILT-XR180 MG PO; +HUMALOG MIX SC; +IPRAAER INH; +LEVEMIR FL100 UNIT/M SC; +LEVOTHYROXIN100 MC1 IV; +LYRICA150 MG PO; +METFORMIN HCL500 MG PO; +OFEV150 MG PO; +PEPCID40 MG PO; +PRED5TAB3 PO; +TIZANIDINE HYDRO4 MG PO
== END 2021-04-29 21:19 | disposition home or self-care (01) ==
LOC: CT 08:25
PROVIDERS: ATTEND Orthopaedic Surgery
DX: M54.2 Cervicalgia (principal); M54.12 Radiculopathy, cervical region

== ENCOUNTER 2021-05-29 10:42 | Outpatient (CLI) | payer OTHER | END 2021-05-29 18:59 | disposition home or self-care (01) | LOC: RAD 10:42 | PROVIDERS: ATTEND Nurse Practitioner Family | DX: J84.10 Pulmonary fibrosis, unspecified (principal); D86.2 Sarcoidosis of lung with sarcoidosis of lymph nodes; J96.11 Chronic respiratory failure with hypoxia ==

== ENCOUNTER 2021-06-20 10:00 | Outpatient (CLI) | payer OTHER | END 2021-06-20 22:13 | disposition home or self-care (01) | LOC: RAD 10:00 | PROVIDERS: ATTEND Obstetrics & Gynecology Obstetrics | DX: R06.02 Shortness of breath (principal); D86.0 Sarcoidosis of lung ==

== ENCOUNTER 2021-09-09 13:35 | Outpatient (CLI) | payer OTHER | END 2021-09-09 19:43 | disposition home or self-care (01) | LOC: RAD 13:35 | PROVIDERS: ATTEND Nurse Practitioner Family | DX: J20.8 Acute bronchitis due to other specified organisms (principal); J84.112 Idiopathic pulmonary fibrosis; D86.0 Sarcoidosis of lung; U09.9 Post COVID-19 condition, unspecified ==